=== PATIENT | male | born 1965 | race Caucasian/White ===

== ENCOUNTER 2023-12-05 15:35 | Emergency (ER) | payer SELFPAY ==
[2023-12-05] MEDS ORDERED: Sodium Chloride 0.9% 10 ML Syringe FLUSH PRN (15:44)
[2023-12-05] MEDS: Sodium Chloride 0.9% 1,000 ML IV ONE (15:45)
[2023-12-05] MEDS: Aspirin 81 MG Tab.Chew PO ONE (15:45)
[2023-12-05 15:49] LABS: BASOPHILS PERCENT AUTO 0.4 % (0.2-1.2); EOSINOPHILS ABSOLUTE AUTO 0.1 x10^3/uL (0.0-0.5); EOSINOPHILS PERCENT AUTO 1.6 % (0.0-4.0); HEMATOCRIT 42.4 % (40.0-52.0); HEMOGLOBIN 14.7 g/dL (14.0-18.0); IMMATURE GRAN ABSOLUTE AUTO 0.01 x10^3/uL (0.00-0.07); LYMPHOCYTES PERCENT AUTO 29.4 % (25.0-50.0); MEAN CORPUSCULAR HEMOGLOBIN 31.7 pg (26.0-32.0); MEAN CORPUSCULAR HGB CONC 34.7 g/dL (32.0-36.0); MEAN CORPUSCULAR VOLUME 91.6 fL (78.0-93.0); MONOCYTES ABSOLUTE AUTO 0.7 x10^3/uL (0.0-0.8); MONOCYTES PERCENT AUTO 10.7 % (2.0-11.0); NEUTROPHILS ABSOLUTE AUTO 3.9 x10^3/uL (1.8-7.7); NEUTROPHILS PERCENT AUTO 57.8 % (50.0-80.0); PLATELET COUNT,PLT 207 x10^3/uL (130-400); RED BLOOD CELL COUNT 4.63 x10^6/uL (4.5-6.0); WHITE BLOOD CELL COUNT,WBC 6.7 x10^3/uL (4.0-10.0)
[2023-12-05 16:12] LABS: A/G RATIO 0.97; ALANINE AMINOTRANSFERASE,ALT 100 U/L (16-63); ALBUMIN 3.6 g/dL (3.4-5.0); ALKALINE PHOSPHATASE 119 U/L (46-116); ASPARTATE AMNIOTRANSFERASE,AST 31 U/L (15-37); BILIRUBIN TOTAL 0.4 mg/dL (0.2-1.0); BLOOD UREA NITROGEN,BUN 14 mg/dL (7-18); CALCIUM 9.5 mg/dL (8.5-10.1); CARBON DIOXIDE,CO2 27 mmol/L (21-32); CHLORIDE,CL 105 mmol/L (98-107); CREATININE 1.1 mg/dL (0.70-1.30); GLUCOSE RANDOM 96 mg/dL (70-99); LIPASE 31 U/L (19-71); POTASSIUM,K 4.7 mmol/L (3.5-5.1); PROTEIN TOTAL,TP 7.3 g/dL (6.4-8.2); SODIUM,NA 142 mmol/L (136-145)
[2023-12-05 16:14] LABS: ANION GAP 14.7 mmol/L (5-15); ESTIMATED GFR 78 mL/min (>=60)
== END 2023-12-05 17:10 ==
LOC: VM.ED 15:35
DX: R07.89 Other chest pain (principal)
CPT/HCPCS: 36415; 71045; 80053; 83690; 84484; 85025; 93005; 96360; 99285; A9270; J7030; 93010; 99284